=== PATIENT | female | born 2005 | race Hispanic/Latino ===

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

== ENCOUNTER 2025-04-24 08:48 | Emergency (ER) | payer BC ==
[2025-04-24] MEDS ORDERED: diphenhydrAMINE 50 MG/ML VIAL ONE (09:26)
[2025-04-24] MEDS ORDERED: Metoclopramide HCl 10 MG (2 mL) VIAL ONE (09:26)
[2025-04-24 10:11] LABS: #Basophils 0.04 10x3/uL (0.0-0.2); #Eosinophils Less than 0.03 10x3/uL (0.0-0.7); #Monocytes 0.21 10x3/uL (0.11-0.59); #Neutrophils 12.71 10x3/uL (1.40-6.50); %Basophils 0.3 % (0.0-1.0); %Eosinophils 0.0 % (0.0-10.0); %Lymphocytes 8.3 % (28.0-48.0); %Monocytes 1.5 % (0.0-4.0); %Neutrophils 89.5 % (31.0-61.0); Hematocrit 41.5 % (36.0-47.0); Hemoglobin 14.0 g/dL (12.0-16.0); Mean Corpuscular Hemoglobin 30.2 pg (25.0-35.0); Mean Corpuscular Volume 89.6 fL (78.0-98.0); Platelet Count 467 10x3/uL (130-400); Red Blood Cell (RBC) Count 4.63 mill/uL (4.00-5.20); White Blood Cell (WBC) Count 14.20 10x3/uL (4.8-10.8)
[2025-04-24 10:13] LABS: BHCG - Serum Negative (NEGATIVE); Pregs Control Background? CLEAR/WHITE (CLR/WHITE); Pregs Control Bar Appear? YES (CONTROL BAR)
[2025-04-24 10:21] LABS: ALT (SGPT) 15 U/L (Less than 34); AST (SGOT) 31 U/L (11-34); Albumin 4.9 g/dL (3.1-4.5); Alkaline Phosphatase 50 U/L (40-100); Anion Gap 20 mmol/L (10-20); BUN (Urea Nitrogen) 12 mg/dL (7.0-18.7); Bilirubin, Total 0.4 mg/dL (0.3-1.2); Calc. Creatinine Clearance 0 mL/min (70-130); Calcium 9.9 mg/dL (7.8-10.44); Carbon Dioxide 19 mmol/L (22-29); Chloride 111 mmol/L (98-107); Globulin 3.4 g/dL (2.4-3.5); Glucose 104 mg/dL (70-105); Lipase 26 U/L (8-78); Potassium 3.7 mmol/L (3.5-5.1); Sodium 146 mmol/L (136-145)
[2025-04-24] MEDS ORDERED: Famotidine/PF 20 mg/2ml Vial ONE (11:13)
[2025-04-24 11:14] LABS: CAUTI Indications for Culture Dysuria,urgency,freq; Glucose, Urine (Dipstick) Normal (Negative); Leukocyte 75 Leu/uL (Negative); Protein, Urine (Dipstick) 30 mg/dL (Neg-Trace); RBC/HPF 0-3 HPF (0-3); Specific Gravity, Urine 1.028 (1.002-1.036)
[2025-04-24 11:15] LABS: Bacteria/HPF 1+ HPF (None Seen)
[2025-04-24 11:16] LABS: Urine Culture Reflex No No
== END 2025-04-24 12:29 | disposition home or self-care (01) ==
LOC: ERS 08:48
DX: R11.2 Nausea with vomiting, unspecified (principal); F17.290 Nicotine dependence, other tobacco product, uncomplicated
CPT/HCPCS: 80053; 81001; 83690; 84703; 85025; 96361; 96374; 96375; J1200; J1308; J1630; J2765